=== PATIENT | male | born 1980 | race Caucasian/White ===

== ENCOUNTER 2017-08-08 16:52 | Emergency (ER) | payer OTHER ==
[2017-08-08] MEDS ORDERED: DIPH,PERTUS(ACELL)TETVAC-LF 0.5 ML VIAL IM ONE (17:21)
[2017-08-08] MEDS ORDERED: ACET/COD 300 MG/30 MG STARTER PACK 6 TAB BTL PO STA (17:21)
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
[2017-08-08 23:34] VITALS: BP 187/98; PULSE 92; RESP 18; TEMP 97.2
== END 2017-08-08 18:50 | disposition home or self-care (01) ==
LOC: EC 16:52
DX: T23.232A Burn of second degree of multiple left fingers (nail), not including thumb, initial encounter (principal); T23.231A Burn of second degree of multiple right fingers (nail), not including thumb, initial encounter; F17.200 Nicotine dependence, unspecified, uncomplicated; Z79.1 Long term (current) use of non-steroidal anti-inflammatories (NSAID); X15.0XXA Contact with hot stove (kitchen), initial encounter; Y93.89 Activity, other specified; Y92.89 Other specified places as the place of occurrence of the external cause
CPT/HCPCS: 90471; 90715; 99283